=== PATIENT | female | born 1990 | race Caucasian/White ===

== ENCOUNTER 2020-05-25 15:08 | Inpatient (IN) | payer OTHER ==
[2020-05-25 15:57] VITALS: BMI 26.4
[2020-05-25] MEDS ORDERED: cloNIDine HCL 0.1 MG TABLET PO PRN (17:00)
[2020-05-25] MEDS ORDERED: METHOCARBAMOL 500 MG TABLET PO PRN (17:05)
[2020-05-25] MEDS ORDERED: BISMUTH SUBSALICYLATE 524 MG/30 ML UD PO PRN (17:05)
[2020-05-25] MEDS ORDERED: NICOTINE POLACRILEX 2 MG GUM BUC PRN (17:05)
[2020-05-25] MEDS ORDERED: MENTHOL/PHENOL 1 EACH UD MM PRN (17:05)
[2020-05-25] MEDS ORDERED: MAGNESIUM HYDROX 2400MG/30ML ORAL SUSPENSION 30 ML CUP PO PRN (17:05)
[2020-05-25] MEDS ORDERED: MAG HYDROX/AL HYDROX/SIMETH 30 ML UNIT-DOSE CUP PO PRN (17:05)
[2020-05-25] MEDS ORDERED: ONDANSETRON *ODT* 4 MG TABLET SL PRN (17:05)
[2020-05-25] MEDS ORDERED: MAGNESIUM CITRATE 300 ML BOTTLE PO PRN (17:05)
[2020-05-25] MEDS ORDERED: IBUPROFEN 400 MG TABLET (FP) PO PRN (17:05)
[2020-05-25] MEDS ORDERED: ACETAMINOPHEN 325 MG TABLET (FP) PO PRN ×2 (17:05)
[2020-05-25] MEDS ORDERED: COLLOIDAL OATMEAL 1 BAR EACH TP PRN (17:11)
[2020-05-25] MEDS ORDERED: MELATONIN 5 MG TABLETS PO PRN (17:13)
[2020-05-25] MEDS ORDERED: NICOTINE 14 MG/24 HOURS TOPICAL PATCH TD PRN (18:00)
[2020-05-25] MEDS ORDERED: diazePAM 5 MG TABLET PO PRN (19:06)
[2020-05-25] MEDS ORDERED: THIAMINE HCL 100 MG TABLET (FP) PO SCH (22:00)
[2020-05-25] MEDS ORDERED: METHADONE HCL 10 MG TABLET (FOR DETOX USE ONLY) PO ONE (22:00)
[2020-05-25] MEDS ORDERED: MELATONIN 5 MG TABLETS PO SCH (22:00)
[2020-05-26 08:23] VITALS: BP 95/55; PULSE 61; TEMP 97.2
[2020-05-26] MEDS ORDERED: PRENATAL VITAMINS W/ FOLIC ACID TABLET (FP) PO SCH (10:00)
[2020-05-26] MEDS ORDERED: POLYETHYLENE GLYCOL 3350 119 GM BTL PO SCH (10:00)
[2020-05-26] MEDS ORDERED: METHADONE HCL 10 MG TABLET (FOR DETOX USE ONLY) PO ONE (10:00)
[2020-05-26 11:12] LABS: POTASSIUM 4.4 mmol/L (3.5-5.1)
[2020-05-26 11:19] LABS: CALCIUM 8.6 mg/dL (8.5-10.1)
[2020-05-26 11:20] LABS: ALBUMIN 3.2 g/dl (3.4-5.0)
[2020-05-26 11:23] LABS: BILIRUBIN,TOTAL 0.2 mg/dL (0.2-1); CREATININE 0.6 mg/dL (0.55-1.3)
[2020-05-26 11:24] LABS: HEMATOCRIT 35.7 % (32.4-45.2); HEMOGLOBIN 11.4 GM/dL (10.7-15.3); MCH 28.9 pg (25.7-33.7); MCHC 31.9 g/dl (32.0-36.0); MEAN CELL VOLUME 90.7 fl (80-96); MEAN PLT VOLUME 9.6 fl (7.5-11.1); PLATELET COUNT 226 K/MM3 (134-434); RBC 3.93 M/mm3 (3.60-5.2); RDW 13.1 % (11.6-15.6)
[2020-05-27] MEDS ORDERED: METHADONE HCL 5 MG TABLET (FOR DETOX USE ONLY) PO ONE (10:00)
[2020-05-28] MEDS ORDERED: METHADONE HCL 10 MG TABLET (FOR DETOX USE ONLY) PO ONE (10:00)
[2020-05-29] MEDS ORDERED: METHADONE HCL 10 MG TABLET (FOR DETOX USE ONLY) PO ONE (10:00)
[2020-05-30] MEDS ORDERED: METHADONE HCL 5 MG TABLET (FOR DETOX USE ONLY) PO ONE (06:00)
== END 2020-05-26 10:28 | disposition left against medical advice (07) | DRG 770 ==
LOC: YASAS 15:08 → Y6N 17:00
PROVIDERS: ADMIT Allergy & Immunology; ATTEND Allergy & Immunology
PROC: HZ2ZZZZ Detoxification Services for Substance Abuse Treatment (ICD-10-PCS; principal; 2020-05-25)
DX: F11.23 Opioid dependence with withdrawal (principal); F10.10 Alcohol abuse, uncomplicated; F17.210 Nicotine dependence, cigarettes, uncomplicated; E86.0 Dehydration
CPT/HCPCS: 36415; 80053; 81025; 85027; 86780; 93005; 93010; C9803; J0735; U0003